=== PATIENT | male | born 1960 | race Two or more races ===

== ENCOUNTER 2025-08-03 16:40 | Observation (INO) ==
[2025-08-03 16:53] VITALS: BMI 25.0
[2025-08-03 17:15] LABS: MEAN PLATELET VOLUME 8.6 fL (7.4-11.0); RED CELL DISTRIBUTION WIDTH 14.7 % (11.6-16.5)
[2025-08-03 17:22] LABS: COR CA(FOR HYPOALB) 9.0 mg/dL (8.5-10.1); CREATININE 1.07 mg/dL (0.70-1.30); eGFR NON BLACK RACES > 60 (>60)
[2025-08-03] MEDS: LEVSIN/MAALOX/LIDOC VISC PO ONE (17:43)
[2025-08-03] MEDS: PROTONIX INJ 40 MG VIAL IVP ONE (17:48)
--- NOTE | 2025-08-03 17:49 | DR.ABDMALE ---
HPI Time seen Time Seen by Provider: 08/03/25 17:25 PCP Primary Care Physician: NFD Complaint Chief Complaint Doctors Comments: Patient with history of reflux worse over the last week and started having hematemesis and melena on Thursday or Thursday. Patient denies any shortness of breath or fever. No abdominal pain at this time and nausea has stopped. Patient states he stopped eating spicy food due to reflux. Chief Complaint:: Patient states thursday and thursday he was vomiting red blood since then he has had epigastric stabbing pain that comes and goes. Patient denies any pain at this moment and he last vomitted thursday. Last bowel movement was thursday. He did have nausea this morning but none now. COVID-19 Coronavirus risk:travel/contact w/high risk person: No Has patient experienced Coronavirus symptoms: No Mode of arrival Mode of Arrival: Ambulatory Timing Onset of Chief Complaint: 07/31/25 PMH PMH Past Medical History: No Past Surgical History: No Family History History of Family Medical Conditions: No Social History Does patient currently use any type of tobacco product: No Have you used tobacco products in the last 12 months: No Type of Tobacco Use: None Does any household member use tobacco: No Alcohol Use: None Do you use any recreational Drugs:: No Lives With: Family Lives Where: Home Travel Risk Coronavirus risk:travel/contact w/high risk person: No Has patient experienced Coronavirus symptoms: No Infectious screening In the last 2 months have you had wt loss of >10#?: NO Have you had fever, night sweats or hemotysis?: No Have you traveled outside the country in the last 6 months?: No Isolation: Standard ROS Review of Systems Constitutional: No Symptoms Reported; negative Fever Eyes: No Symptoms Reported ENTM: No Symptoms Reported Respiratoy: No Symptoms Reported; negative Short of Breath Cardiovascular: No Symptoms Reported; negative Chest Pain Gastrointestinal/Abdominal: See HPI, Abdominal Pain (Midepigastric but resolved's off a couple hours ago), Nausea and Vomiting; negative Constipation or Diarrhea Genitourinary: No Symptoms Reported; negative Hematuria Neurological: No Symptoms Reported Musculoskeletal: No Symptoms Reported Integumentary: No Symptoms Reported Hematologic/Lymphatic: No Symptoms Reported Endocrine: No Symptoms Reported Psychiatric: No Symptoms Reported All Other Systems: Reviewed and Negative PE Vital Signs Vital Signs: Temp Pulse Resp BP Pulse Ox O2 Del Method 08/03/25 17:43 16 08/03/25 16:48 98.2 F 97 H 17 143/75 100 Room Air General Limitations: No Limitations General Appearance: Alert and In No Apparent Distress Head Head Exam: Normal Inspection Eyes Eye exam: Normal Appearance Neck Neck Exam: Normal Inspection Chest Chest Inspection: Normal Inspection Respiratory Respiratory Exam: Normal Lung Sounds Bilat Cardiovascular Cardiovascular Exam: Regular Rate and Normal Rhythm Abdominal Exam Abdominal Exam: Normal Inspection, Normal Bowel Sounds and Soft; negative Distention, Tenderness, Guarding, Rebound, Rigidity, Organomegaly or Ascites Rectal Rectal Exam: Normal Inspection, Normal Rectal Tone, Heme (+) Stool and Black Stool; negative Bloody Stool, Hemorrhoids or Tenderness Exam: Male: Deferred Neurologic Neurological Exam: Alert and Oriented X3 Psychiatric Psychiatric Exam: Normal Affect and Normal Mood Skin Skin Exam: Warm, Dry, Intact and Normal Color COURSE Treatment Treatment: Patient with GI bleed. Discussed results of workup with patient. He is agreeable to admission. Discussed case with Dr. Patel and she is agreeable to admission. Consultation Consultation Comments: Discussed case with Dr. Patel and she is agreeable to admission. ROR Labs Reviewed Laboratory Results Reviewed?: Yes 08/03/25 17:00 08/03/25 17:00 Laboratory: WBC 12.3 X10^3/uL (3.6-10.0) H 08/03/25 17:00 RBC 3.19 X10^6/uL (4.7-6.0) L 08/03/25 17:00 Hgb 8.2 g/dL (13.5-18.0) L 08/03/25 17:00 Hct 25.2 % (42.0-54.0) L 08/03/25 17:00 MCV 79.0 fL (80.0-100.0) L 08/03/25 17:00 MCH 25.6 pg (27.0-34.0) L 08/03/25 17:00 MCHC 32.4 g/dL (33.0-35.0) L 08/03/25 17:00 RDW 14.7 % (11.6-16.5) 08/03/25 17:00 Plt Count 253 X10^3/uL (150.0-450.0) 08/03/25 17:00 MPV 8.6 fL (7.4-11.0) 08/03/25 17:00 Neut % (Auto) 83.6 % (42.0-75.0) H 08/03/25 17:00 Lymph % (Auto) 10.2 % (21.0-51.0) L 08/03/25 17:00 [place] % (Auto) 5.0 % (0.0-13.0) 08/03/25 17:00 Eos % (Auto) 0.6 % (0.9-2.9) L 08/03/25 17:00 Baso % (Auto) 0.6 % (0.2-1.0) 08/03/25 17:00 Neut # (Auto) 10.3 x10^3/uL (2.2-4.8) H 08/03/25 17:00 Lymph # (Auto) 1.3 X10^3/uL (1.3-2.9) 08/03/25 17:00 [place] # (Auto) 0.6 x10^3/uL (0.3-0.8) 08/03/25 17:00 Eos # (Auto) 0.1 x10^3/uL (0.0-0.2) 08/03/25 17:00 Baso # (Auto) 0.1 X10^3/uL (0.0-0.1) 08/03/25 17:00 Absolute Nucleated RBC 0.1 /100WBC 08/03/25 17:00 Sodium 139 mmol/L (136-145) 08/03/25 17:00 Corrected Sodium TNP 08/03/25 17:00 Potassium 4.6 mmol/L (3.5-5.1) 08/03/25 17:00 Chloride 106 mmol/L (98-107) 08/03/25 17:00 Carbon Dioxide 24.9 mmol/L (21-32) 08/03/25 17:00 BUN 30 mg/dL (7-18) H 08/03/25 17:00 Creatinine 1.07 mg/dL (0.70-1.30) 08/03/25 17:00 Est GFR (MDRD) Af Amer > 60 (>60) 08/03/25 17:00 Est GFR (MDRD) Non-Af > 60 (>60) 08/03/25 17:00 Glucose 104 mg/dL (65-99) H 08/03/25 17:00 Calcium 8.0 mg/dL (8.5-10.1) L 08/03/25 17:00 Corrected Calcium 9.0 mg/dL (8.5-10.1) 08/03/25 17:00 Total Bilirubin 0.30 mg/dL (0.2-1.0) 08/03/25 17:00 AST 15 Units/L (15-37) 08/03/25 17:00 ALT 15 Units/L (12-78) 08/03/25 17:00 Alkaline Phosphatase 74 Units/L (46-116) 08/03/25 17:00 Total Protein 6.7 g/dL (6.4-8.2) 08/03/25 17:00 Albumin 2.8 g/dL (3.4-5.0) L 08/03/25 17:00 Globulin 3.9 g/dL (2.5-4.5) 08/03/25 17:00 Albumin/Globulin Ratio 0.7 Ratio (1.1-2.1) L 08/03/25 17:00 Amylase 76 Units/L (25-115) 08/03/25 17:00 Lipase 38 Units/L (16-77) 08/03/25 17:00 Stool Occult Blood Positive (NEGATIVE) A 08/03/25 17:32 Opioid Opioid Risk Tool Age (Alfonzo box if 16-45): No History of Preadolescent Sexual Abuse: No Total: 0 Total Score Risk Category: Low Risk Copyright: Anthony RUSHING predicting aberrant behaviors Discharge Plan Diagnosis Discharge Problem: Anemia GI bleed Qualifiers: GI bleed type/associated pathology: gastrointestinal hemorrhage with hematemesis Qualified Code(s): K92.0 - Hematemesis Discharge Plan Patient Disposition: ADMITTED INPATIENT Condition: Stable Prescriptions: No Action [facility] Concerns: Post Hospitalization: new medications and changes needed to prevent readmission or further decline. Pt educated and given instructions on all concerns. Plan of Treatment: Continue with present treatment and follow up plan. Pt is to keep follow up appointment as instructed and take medications as ordered. Orders to Discharge Patient Discharge Orders: Transfer (Routine); Ordered 08/03/25 Ordered By: Masoud Anderson Follow ups/Referrals Follow ups/Referrals: NFD,None [Primary Care Provider] - 3 days Instructions Stand Alone Forms: Find Help Web Site, Post Hospital Follow Up Care Print Language: SLOVAK
[2025-08-03] MEDS ORDERED: CONSULT PHARMACY - POTASSIUM & MAGNESIUM XX SCH (20:31)
[2025-08-03] MEDS ORDERED: NovoLIN R (or HumuLIN R) SUBCUT PRN (20:31)
[2025-08-03] MEDS ORDERED: MORPHINE SULFATE INJ 2 MG INJ IVP PRN (20:31)
[2025-08-03] MEDS ORDERED: ULTRAM PO PRN (20:31)
[2025-08-03] MEDS ORDERED: TYLENOL 325 MG TAB PO PRN (20:31)
[2025-08-03] MEDS: CARAFATE PO SCH (21:44)
[2025-08-03] MEDS: NS 1,000 ML IV 1,000 ML IV SCH (21:44)
[2025-08-03] MEDS: SNACK - Diabetic Appropriate PO SCH (22:05)
[2025-08-04] MEDS: PROTONIX INJ 40 MG VIAL ONE (03:24)
[2025-08-04] MEDS: NORCO 5/325 MG TAB PO PRN (05:39)
[2025-08-04 05:57] LABS: MEAN PLATELET VOLUME 9.0 fL (7.4-11.0); RED CELL DISTRIBUTION WIDTH 14.8 % (11.6-16.5)
[2025-08-04 06:01] LABS: COR CA(FOR HYPOALB) 9.1 mg/dL (8.5-10.1); CREATININE 1.12 mg/dL (0.70-1.30); eGFR NON BLACK RACES > 60 (>60)
--- NOTE | 2025-08-04 07:57 | DR.H&P ---
H&P History & Physical for Day of: H&P Date: 08/03/25 Chief Complaint Chief Complaint: vomiting blood and abdominal pain History of Present Illness History of Present Illness: Patient states Thursday and Thursday he was vomiting red blood since then he has had epigastric stabbing pain that comes and goes. Patient denies any pain at this moment and he last vomited Thursday. Last bowel movement was Thursday. He did have nausea this morning but none now.Pt had an EGD in 2020 due to similar symptoms. Social History Does patient currently use any type of tobacco product: No Have you used tobacco products in the last 12 months: No Type of Tobacco Use: None Does any household member use tobacco: No Alcohol Use: None Drug Use: None Medications Home Medications: Home Medications Medication Instructions Recorded Confirmed Type NK 08/03/25 08/03/25 History Allergies Allergies Allergy/AdvReac Type Severity Reaction Status Date / Time No Known Drug Allergies Allergy Verified 08/03/25 16:44 Labs 08/04/25 04:15 08/04/25 04:15 Labs: Laboratory WBC 6.8 X10^3/uL (3.6-10.0) 08/04/25 04:15 RBC 2.86 X10^6/uL (4.7-6.0) L 08/04/25 04:15 Hgb 7.5 g/dL (13.5-18.0) L 08/04/25 04:15 Hct 22.6 % (42.0-54.0) L 08/04/25 04:15 MCV 79.0 fL (80.0-100.0) L 08/04/25 04:15 MCH 26.2 pg (27.0-34.0) L 08/04/25 04:15 MCHC 33.2 g/dL (33.0-35.0) 08/04/25 04:15 RDW 14.8 % (11.6-16.5) 08/04/25 04:15 Plt Count 234 X10^3/uL (150.0-450.0) 08/04/25 04:15 MPV 9.0 fL (7.4-11.0) 08/04/25 04:15 Neut % (Auto) 74.0 % (42.0-75.0) 08/04/25 04:15 Lymph % (Auto) 15.9 % (21.0-51.0) L 08/04/25 04:15 [facility] % (Auto) 8.4 % (0.0-13.0) 08/04/25 04:15 Eos % (Auto) 1.5 % (0.9-2.9) 08/04/25 04:15 Baso % (Auto) 0.2 % (0.2-1.0) 08/04/25 04:15 Neut # (Auto) 5.0 x10^3/uL (2.2-4.8) H 08/04/25 04:15 Lymph # (Auto) 1.1 X10^3/uL (1.3-2.9) L 08/04/25 04:15 [facility] # (Auto) 0.6 x10^3/uL (0.3-0.8) 08/04/25 04:15 Eos # (Auto) 0.1 x10^3/uL (0.0-0.2) 08/04/25 04:15 Baso # (Auto) 0.0 X10^3/uL (0.0-0.1) 08/04/25 04:15 Absolute Nucleated RBC 0.2 /100WBC 08/04/25 04:15 Sodium 140 mmol/L (136-145) 08/04/25 04:15 Corrected Sodium TNP 08/04/25 04:15 Potassium 4.1 mmol/L (3.5-5.1) 08/04/25 04:15 Chloride 107 mmol/L (98-107) 08/04/25 04:15 Carbon Dioxide 24.8 mmol/L (21-32) 08/04/25 04:15 BUN 24 mg/dL (7-18) H 08/04/25 04:15 Creatinine 1.12 mg/dL (0.70-1.30) 08/04/25 04:15 Est GFR (MDRD) Af Amer > 60 (>60) 08/04/25 04:15 Est GFR (MDRD) Non-Af > 60 (>60) 08/04/25 04:15 Glucose 92 mg/dL (65-99) 08/04/25 04:15 POC Glucose (mg/dL) 98 mg/dL (65-99) 08/04/25 05:28 Calcium 7.9 mg/dL (8.5-10.1) L 08/04/25 04:15 Corrected Calcium 9.1 mg/dL (8.5-10.1) 08/04/25 04:15 Total Bilirubin 0.50 mg/dL (0.2-1.0) 08/04/25 04:15 AST 15 Units/L (15-37) 08/04/25 04:15 ALT 8 Units/L (12-78) L 08/04/25 04:15 Alkaline Phosphatase 68 Units/L (46-116) 08/04/25 04:15 Total Protein 6.3 g/dL (6.4-8.2) L 08/04/25 04:15 Albumin 2.5 g/dL (3.4-5.0) L 08/04/25 04:15 Globulin 3.8 g/dL (2.5-4.5) 08/04/25 04:15 Albumin/Globulin Ratio 0.7 Ratio (1.1-2.1) L 08/04/25 04:15 Amylase 76 Units/L (25-115) 08/03/25 17:00 Lipase 38 Units/L (16-77) 08/03/25 17:00 Stool Occult Blood Positive (NEGATIVE) A 08/03/25 17:32 Review of Systems Constitutional: Malaise Eyes: No Symptoms Reported ENT: No Symptoms Reported Respiratory: SOB with Excertion Cardiovascular: No Symptoms Reported Gastrointestinal: Nausea, Vomiting, Abdominal Pain, Melena and Hematochezia Genitourinary: No Symptoms Reported Musculoskeletal: No Symptoms Reported Skin: No Symptoms Reported Neurological: No Symptoms Reported Physical Exam Vital Signs: Vital Signs Temperature 98.2 F Temperature 98.1 F Pulse Rate [Apical] 80 Pulse Rate [Apical] 85 Respiratory Rate 20 Respiratory Rate 20 Respiratory Rate 16 Blood Pressure [Left Arm] 108/63 Blood Pressure [Left Arm] 123/68 O2 Sat by Pulse Oximetry 98 O2 Sat by Pulse Oximetry 98 Oriented: Normal Eyes: Normal Ear: Normal Nose: Normal Throat: Normal Respiratory: RLL Diminished and LLL Diminished Cardiovascular: Normal Auscultation: Bowel Sounds: Normal Tenderness: Epigastric Skin: Normal Musculoskeletal: Normal Affect: Anxious Speech Pattern: Clear and Appropriate Assessment/Plan (1) GI bleed: Qualifiers: GI bleed type/associated pathology: gastrointestinal hemorrhage with hematemesis Qualified Code(s): K92.0 - Hematemesis Status: Acute Plan: ADMIT, OCCULT STOOL NPO, TYPE AND SCREEN, IV HYDRATION BP AND CARDIAC MONITORING VERIFY HOME MEDICATIONS CONSULT DR GARCIA, BID IV PROTONIX (2) Anemia: Status: Acute (3) Gastritis: Status: Acute
[2025-08-04 08:03] LABS: RETICULOCYTE % 2.58 % (0.8-2.2)
[2025-08-04] MEDS ORDERED: PROTONIX TAB 40 MG PO SCH (09:00)
[2025-08-04] MEDS: LR 1,000 ML IV 250 ML IV PRN (09:42)
[2025-08-04] MEDS: DIPRIVAN VIAL 150 ML IVP PRN (09:48)
[2025-08-04] MEDS: XYLOCAINE 2 % (PLAIN) IVP PRN (09:48)
[2025-08-04] MEDS: OMNIPAQUE 350 mg/mL 100 mL BTL IVP NR (11:08)
--- NOTE | 2025-08-04 11:31 | RAD ---
EXAM: CHEST, 1 VIEW HISTORY: SOB; COMPARISON: None. TECHNIQUE: AP FINDINGS: Mildly prominent cardiac silhouette, accentuated by AP technique. Low lung volumes. No focal consolidation. No large pleural effusion or visible pneumothorax. IMPRESSION: No acute cardiopulmonary findings. THIS IS AN ELECTRONICALLY VERIFIED FINAL REPORT 08/04/2025 11:28 AM - Electronically signed by Mandeep Caba MD
--- NOTE | 2025-08-04 11:35 | CT ---
EXAM: CT CHEST WITH IV CONTRAST HISTORY: esophageal stricture; COMPARISON: Chest x-ray from same date. TECHNIQUE: Axial CT images were obtained through the chest after administration of IV contrast. Coronal and sagittal reformatted images were included. All CT scans at this facility use dose modulation, iterative reconstruction, and/or weight based dosing when appropriate to reduce radiation dose to as low as reasonably achievable. FINDINGS: Normal caliber thoracic aorta and main pulmonary artery. No evidence of pulmonary artery filling defect. No pericardial effusion. No thoracic lymphadenopathy. The midthoracic trachea is circumferentially thickened with moderate surrounding edema. No mediastinal gas. Trachea is midline and central airways are patent. Mild respiratory lung motion. Mild dependent lung atelectasis. No focal consolidation. No pleural effusion or pneumothorax. No acute osseous findings. Mild multilevel degenerative disc disease. No suspicious sclerotic or lytic osseous lesions. Visualized upper abdominal organs are unremarkable. IMPRESSION: 1. Moderate mid esophageal wall thickening with surrounding edema. Findings are concerning for primary esophageal malignancy. Esophagitis may have similar appearance but considered less likely. 2. No lymphadenopathy or evidence of metastases. THIS IS AN ELECTRONICALLY VERIFIED FINAL REPORT 08/04/2025 11:32 AM - Electronically signed by Mandeep Caba MD
[2025-08-04] MEDS: PROTONIX INJ 40 MG VIAL IVP SCH (11:40)
--- NOTE | 2025-08-04 12:51 | DR.PROGNOT ---
HOSPITAL PROGRESS NOTE Progress Note for Day of: Progress Note Date: 08/04/25 Chief Complaint Chief Complaint: Status post EGD with biopsy, balloon dilation of esophageal stricture. The findings are consistent with stricture of the lower esophagus with ulceration, multiple biopsies were obtained. Chest CT showed suspicion of malignancy of the mid and lower esophagus, esophagitis could not be ruled out. Patient has longstanding history of reflux esophagitis and stricture. Malignant changes is a possibility. Past Medical Family Social History Past Med/Fam/Surg Hx: No changes since H&P Allergies: Allergies No Known Drug Allergies Allergy (Verified 08/03/25 16:44) Review Of Systems ROS: No change since H&P Vital Signs Vital Signs: Vital Signs Temperature 97.9 F Temperature 97.8 F Temperature 97.9 F Temperature 97.6 F Pulse Rate [Apical] 77 Pulse Rate [Apical] 72 Pulse Rate [Apical] 72 Pulse Rate [Apical] 76 Respiratory Rate 16 Respiratory Rate 18 Respiratory Rate 16 Respiratory Rate 20 Respiratory Rate 18 Respiratory Rate 20 Blood Pressure [Left Arm] 119/71 Blood Pressure [Left Arm] 120/71 Blood Pressure [Left Arm] 107/68 Blood Pressure [Left Arm] 100/61 O2 Sat by Pulse Oximetry 98 O2 Sat by Pulse Oximetry 97 O2 Sat by Pulse Oximetry 98 O2 Sat by Pulse Oximetry 98 Physical Exam Oriented: Normal Eyes: Normal Ear: Normal Nose: Normal Throat: Normal Cardiovascular: Normal GI:Auscultation: Normal GI: Tenderness: Epigastric Skin: Normal Musculoskeletal: Normal Affect: Anxious Speech Pattern: Clear and Appropriate Laboratory and Diagnostics 08/04/25 04:15 08/04/25 04:15 Labs: Laboratory WBC 6.8 X10^3/uL (3.6-10.0) 08/04/25 04:15 RBC 2.86 X10^6/uL (4.7-6.0) L 08/04/25 04:15 Hgb 7.5 g/dL (13.5-18.0) L 08/04/25 04:15 Hct 22.6 % (42.0-54.0) L 08/04/25 04:15 MCV 79.0 fL (80.0-100.0) L 08/04/25 04:15 MCH 26.2 pg (27.0-34.0) L 08/04/25 04:15 MCHC 33.2 g/dL (33.0-35.0) 08/04/25 04:15 RDW 14.8 % (11.6-16.5) 08/04/25 04:15 Plt Count 234 X10^3/uL (150.0-450.0) 08/04/25 04:15 MPV 9.0 fL (7.4-11.0) 08/04/25 04:15 Neut % (Auto) 74.0 % (42.0-75.0) 08/04/25 04:15 Lymph % (Auto) 15.9 % (21.0-51.0) L 08/04/25 04:15 [place] % (Auto) 8.4 % (0.0-13.0) 08/04/25 04:15 Eos % (Auto) 1.5 % (0.9-2.9) 08/04/25 04:15 Baso % (Auto) 0.2 % (0.2-1.0) 08/04/25 04:15 Neut # (Auto) 5.0 x10^3/uL (2.2-4.8) H 08/04/25 04:15 Lymph # (Auto) 1.1 X10^3/uL (1.3-2.9) L 08/04/25 04:15 [place] # (Auto) 0.6 x10^3/uL (0.3-0.8) 08/04/25 04:15 Eos # (Auto) 0.1 x10^3/uL (0.0-0.2) 08/04/25 04:15 Baso # (Auto) 0.0 X10^3/uL (0.0-0.1) 08/04/25 04:15 Absolute Nucleated RBC 0.2 /100WBC 08/04/25 04:15 Absolute Retic 0.0748 10^6/uL 08/04/25 04:15 Percent Retic 2.58 % (0.8-2.2) H 08/04/25 04:15 Sodium 140 mmol/L (136-145) 08/04/25 04:15 Corrected Sodium TNP 08/04/25 04:15 Potassium 4.1 mmol/L (3.5-5.1) 08/04/25 04:15 Chloride 107 mmol/L (98-107) 08/04/25 04:15 Carbon Dioxide 24.8 mmol/L (21-32) 08/04/25 04:15 BUN 24 mg/dL (7-18) H 08/04/25 04:15 Creatinine 1.12 mg/dL (0.70-1.30) 08/04/25 04:15 Est GFR (MDRD) Af Amer > 60 (>60) 08/04/25 04:15 Est GFR (MDRD) Non-Af > 60 (>60) 08/04/25 04:15 Glucose 92 mg/dL (65-99) 08/04/25 04:15 POC Glucose (mg/dL) 74 mg/dL (65-99) 08/04/25 12:05 Calcium 7.9 mg/dL (8.5-10.1) L 08/04/25 04:15 Corrected Calcium 9.1 mg/dL (8.5-10.1) 08/04/25 04:15 Iron 10 ug/dL (50-175) L 08/04/25 04:15 TIBC 375 ug/dL (250-450) 08/04/25 04:15 Transferrin 276 mg/dL (202-364) 08/04/25 04:15 Ferritin 7 ng/mL (26-388) L 08/04/25 04:15 Total Bilirubin 0.50 mg/dL (0.2-1.0) 08/04/25 04:15 AST 15 Units/L (15-37) 08/04/25 04:15 ALT 8 Units/L (12-78) L 08/04/25 04:15 Alkaline Phosphatase 68 Units/L (46-116) 08/04/25 04:15 Total Protein 6.3 g/dL (6.4-8.2) L 08/04/25 04:15 Albumin 2.5 g/dL (3.4-5.0) L 08/04/25 04:15 Globulin 3.8 g/dL (2.5-4.5) 08/04/25 04:15 Albumin/Globulin Ratio 0.7 Ratio (1.1-2.1) L 08/04/25 04:15 Amylase 76 Units/L (25-115) 08/03/25 17:00 Lipase 38 Units/L (16-77) 08/03/25 17:00 Vitamin B12 317 pg/mL (193-986) 08/04/25 04:15 Folate 5.7 ng/mL (>8.6) L 08/04/25 04:15 Stool Occult Blood Positive (NEGATIVE) A 08/03/25 17:32 Blood Type O POSITIVE 08/04/25 08:54 Antibody Screen Negative 08/04/25 08:54 Crossmatch See Detail 08/04/25 08:54 Assessment and Plan 1: Stricture and ulceration of the mid and lower esophagus, status post dilation. On full liquid diet for now and same Protonix IV twice a day. Awaiting final biopsy report. 2: Chronic iron deficiency anemia.. Problem Patient Problems: Patient Problems Anemia (Acute) D64.9 GI bleed (Acute) K92.2
[2025-08-05 05:47] LABS: MEAN PLATELET VOLUME 9.1 fL (7.4-11.0); RED CELL DISTRIBUTION WIDTH 15.0 % (11.6-16.5)
[2025-08-05 05:53] LABS: COR CA(FOR HYPOALB) 9.0 mg/dL (8.5-10.1); CREATININE 1.03 mg/dL (0.70-1.30); eGFR NON BLACK RACES > 60 (>60)
[2025-08-05] MEDS: XYLOCAINE 2 % (PLAIN) ONE (06:36)
[2025-08-05] MEDS: DIPRIVAN VIAL 20 ML ONE (06:36)
[2025-08-05] MEDS: LR 1,000 ML IV 1,000 ML IV ONE (06:36)
[2025-08-05] MEDS: OMNIPAQUE 350 mg/mL 100 mL BTL 100 ML ONE ×2 (06:37)
--- NOTE | 2025-08-05 10:51 | DR.PROGNOT ---
HOSPITAL PROGRESS NOTE Progress Note for Day of: Progress Note Date: 08/05/25 Chief Complaint Chief Complaint: Status post EGD with biopsy, balloon dilation of esophageal stricture. The findings are consistent with stricture of the lower esophagus with ulceration, multiple biopsies were obtained. Chest CT showed suspicion of malignancy of the mid and lower esophagus, esophagitis could not be ruled out. Patient has longstanding history of reflux esophagitis and stricture. Malignant changes is a possibility. Patient is tolerating diet well with no dysphagia today. Lab work is normal, patient is afebrile. Abdomen is soft flat with good bowel sounds. Past Medical Family Social History Past Med/Fam/Surg Hx: No changes since H&P Allergies: Allergies No Known Drug Allergies Allergy (Verified 08/03/25 16:44) Review Of Systems ROS: No change since H&P Vital Signs Vital Signs: Vital Signs Temperature 98 F Temperature 98.6 F Pulse Rate [Right Brachial] 71 Pulse Rate [Apical] 75 Respiratory Rate 20 Respiratory Rate 20 Blood Pressure [Right Arm] 109/65 Blood Pressure [Right Arm] 112/59 O2 Sat by Pulse Oximetry 98 O2 Sat by Pulse Oximetry 97 Physical Exam Oriented: Normal Eyes: Normal Ear: Normal Nose: Normal Throat: Normal Cardiovascular: Normal GI:Auscultation: Normal GI: Tenderness: Epigastric Skin: Normal Musculoskeletal: Normal Affect: Anxious Speech Pattern: Clear and Appropriate Laboratory and Diagnostics 08/05/25 05:12 08/05/25 05:12 Labs: Laboratory WBC 6.8 X10^3/uL (3.6-10.0) 08/05/25 05:12 RBC 3.49 X10^6/uL (4.7-6.0) L 08/05/25 05:12 Hgb 9.2 g/dL (13.5-18.0) L 08/05/25 05:12 Hct 27.5 % (42.0-54.0) L 08/05/25 05:12 MCV 78.8 fL (80.0-100.0) L 08/05/25 05:12 MCH 26.2 pg (27.0-34.0) L 08/05/25 05:12 MCHC 33.3 g/dL (33.0-35.0) 08/05/25 05:12 RDW 15.0 % (11.6-16.5) 08/05/25 05:12 Plt Count 244 X10^3/uL (150.0-450.0) 08/05/25 05:12 MPV 9.1 fL (7.4-11.0) 08/05/25 05:12 Neut % (Auto) 69.0 % (42.0-75.0) 08/05/25 05:12 Lymph % (Auto) 15.6 % (21.0-51.0) L 08/05/25 05:12 [place] % (Auto) 11.5 % (0.0-13.0) 08/05/25 05:12 Eos % (Auto) 3.5 % (0.9-2.9) H 08/05/25 05:12 Baso % (Auto) 0.4 % (0.2-1.0) 08/05/25 05:12 Neut # (Auto) 4.7 x10^3/uL (2.2-4.8) 08/05/25 05:12 Lymph # (Auto) 1.1 X10^3/uL (1.3-2.9) L 08/05/25 05:12 [place] # (Auto) 0.8 x10^3/uL (0.3-0.8) 08/05/25 05:12 Eos # (Auto) 0.2 x10^3/uL (0.0-0.2) 08/05/25 05:12 Baso # (Auto) 0.0 X10^3/uL (0.0-0.1) 08/05/25 05:12 Absolute Nucleated RBC 0.1 /100WBC 08/05/25 05:12 Absolute Retic 0.0748 10^6/uL 08/04/25 04:15 Percent Retic 2.58 % (0.8-2.2) H 08/04/25 04:15 Sodium 137 mmol/L (136-145) 08/05/25 05:12 Corrected Sodium TNP 08/05/25 05:12 Potassium 3.9 mmol/L (3.5-5.1) 08/05/25 05:12 Chloride 105 mmol/L (98-107) 08/05/25 05:12 Carbon Dioxide 25.5 mmol/L (21-32) 08/05/25 05:12 BUN 15 mg/dL (7-18) 08/05/25 05:12 Creatinine 1.03 mg/dL (0.70-1.30) 08/05/25 05:12 Est GFR (MDRD) Af Amer > 60 (>60) 08/05/25 05:12 Est GFR (MDRD) Non-Af > 60 (>60) 08/05/25 05:12 Glucose 88 mg/dL (65-99) 08/05/25 05:12 POC Glucose (mg/dL) 90 mg/dL (65-99) 08/05/25 07:16 Calcium 7.8 mg/dL (8.5-10.1) L 08/05/25 05:12 Corrected Calcium 9.0 mg/dL (8.5-10.1) 08/05/25 05:12 Iron 10 ug/dL (50-175) L 08/04/25 04:15 TIBC 375 ug/dL (250-450) 08/04/25 04:15 Transferrin 276 mg/dL (202-364) 08/04/25 04:15 Ferritin 7 ng/mL (26-388) L 08/04/25 04:15 Total Bilirubin 0.50 mg/dL (0.2-1.0) 08/05/25 05:12 AST 30 Units/L (15-37) 08/05/25 05:12 ALT 28 Units/L (12-78) 08/05/25 05:12 Alkaline Phosphatase 83 Units/L (46-116) 08/05/25 05:12 Total Protein 6.4 g/dL (6.4-8.2) 08/05/25 05:12 Albumin 2.5 g/dL (3.4-5.0) L 08/05/25 05:12 Globulin 3.9 g/dL (2.5-4.5) 08/05/25 05:12 Albumin/Globulin Ratio 0.6 Ratio (1.1-2.1) L 08/05/25 05:12 Amylase 76 Units/L (25-115) 08/03/25 17:00 Lipase 38 Units/L (16-77) 08/03/25 17:00 Vitamin B12 317 pg/mL (193-986) 08/04/25 04:15 Folate 5.7 ng/mL (>8.6) L 08/04/25 04:15 Stool Occult Blood Positive (NEGATIVE) A 08/03/25 17:32 Blood Type O POSITIVE 08/04/25 08:54 Antibody Screen Negative 08/04/25 08:54 Crossmatch See Detail 08/04/25 08:54 Assessment and Plan 1: Stricture and ulceration of the mid and lower esophagus, status post dilation. On soft diet for now and same Protonix twice a day. Patient is given antireflux instruction. Will follow in 2 weeks. Awaiting final biopsy report. 2: Chronic iron deficiency anemia.. Problem Patient Problems: Patient Problems Anemia (Acute) D64.9 GI bleed (Acute) K92.2
[2025-08-05 13:42] VITALS: BP 131/76; PULSE 87; RESP 19; TEMP 98.2; O2SAT 99
== END 2025-08-05 13:30 | disposition home or self-care (01) ==
LOC: MED/SURG 16:40 → ER 16:40 → MED/SURG 20:10
PROVIDERS: ADMIT Internal Medicine; ATTEND Internal Medicine
DX: D72.828 Other elevated white blood cell count; I10 Essential (primary) hypertension; Z55.8 Other problems related to education and literacy; R79.89 Other specified abnormal findings of blood chemistry; D64.89 Other specified anemias; K22.719 Barrett's esophagus with dysplasia, unspecified; J44.9 Chronic obstructive pulmonary disease, unspecified; E83.51 Hypocalcemia; K92.0 Hematemesis; R10.13 Epigastric pain; K22.2 Esophageal obstruction; R10.84 Generalized abdominal pain; E11.65 Type 2 diabetes mellitus with hyperglycemia; R06.02 Shortness of breath; K21.00 Gastro-esophageal reflux disease with esophagitis, without bleeding